=== PATIENT | male | born 1945 | race African-American/Black ===

== ENCOUNTER → 2016-09-14 | Outpatient (CLI) | payer MEDICARE, OTHER ==
--- NOTE | 2016-09-14 14:30 | RAD ---
Right shoulder, 3 views, 09/14/2016: History: Pain after fall The bony structures are demineralized. A right humeral head prosthesis is in place. No fracture or dislocation is evident. There are mild periarticular calcifications or old bone fragments at the distal shoulder joint level. There is mild arthritic change at the AC joint. IMPRESSION: 1. Demineralization. 2. A right humeral head prosthesis is in place. 3. No acute bony abnormality
== END | disposition home or self-care (01) ==
LOC: DXRADRC 11:14
PROVIDERS: ATTEND Orthopaedic Surgery Sports Medicine
DX: M25.511 Pain in right shoulder (principal); M81.0 Age-related osteoporosis without current pathological fracture; W19.XXXA Unspecified fall, initial encounter
CPT/HCPCS: 73030

== ENCOUNTER 2016-10-15 13:54 | Emergency (ER) | payer MEDICARE, OTHER ==
[2016-10-15] MEDS ORDERED: fentaNYL PF 100 MCG/2 ML VIAL IV PRN (14:45)
--- NOTE | 2016-10-15 16:11 | PHYS DOC ---
General Chief Complaint: Neck Pain Stated Complaint: NECK/LEFT ARM PAIN Time Seen by MD: 14:08 Source: patient, EMS, old records Exam Limitations: no limitations Problems: History of Present Illness Initial Comments Pt is 70/M to ED via EMS for neck pain. Pt states he awoke this morning with neck pain and wouldn't get out of bed due to pain. "I think I slept on my neck wrong, my pillow or something I don't know." No trauma, h/o L rotator cuff surgery few years ago. No arm numbness/ tingling/weakness/radiating symptoms. No prearrival treatment, no prior neck pain complaints. No midline or bony pain, pt points to SCM muscle origin and muscle noted to be hypertonic with TTP. 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) Surgical History: other (AICD, left rotator cuff) Social History Smoker: quit greater than 1 year Alcohol: sober Drugs: none Review of Systems Constitutional: denies chills, denies fever EENTM: see HPI Respiratory: denies cough, denies shortness of breath Cardiovascular: denies chest pain, denies palpitations Gastrointestinal: denies nausea, denies vomiting Genitourinary: denies dysuria, denies frequency Musculoskeletal: see HPI Psychiatric/Neurological: denies headache, denies numbness, denies paresthesia , denies weakness Physical Exam General Appearance: moderate distress Ear, Nose, Throat: hearing grossly normal, normal ENT inspection, normal pharynx Neck: tender lateral (L SCM hypertonicity with TTP and decreased ROM no midline or bony pain/tender) Respiratory: normal breath sounds, no respiratory distress Gastrointestinal: non tender, soft Back: no CVA tenderness, no vertebral tenderness Extremities: non-tender, normal inspection Neurologic/Psychiatric: general technician II-XII nml as tested, no motor/sensory deficits, alert, normal mood/affect, oriented x 3 Skin: normal color, warm/dry Orders, Labs, Meds fentanyl with pain relief, pt able to move better. Uses walker at home, still with discomfort but feels it will be tolerable with PO meds. Departure Time of Disposition: 16:16 Disposition: 01 HOME, SELF-CARE Diagnosis: acute torticollis Condition: IMPROVED Patient Instructions: Torticollis, Acute Additional Instructions: Use a walker and request assistance when standing and walking. Heating pad to area 15 minutes 4-5 times daily followed by gentle stretching. Try to keep activity to "pain-free." Rx: norco 5mg #20, prednisone, tizanidine. Take medications with food, take OTC stool softener while taking pain meds. Follow up with your doctor Karen for recheck. Return to ED with new or changing symptoms. EMPERATRIZ ARRIETA DO October 15, 2016 16:11
[2016-10-15] MEDS ORDERED: PRED20TA PO (16:16)
[2016-10-15] MEDS ORDERED: HYDR-971 PO (16:16)
[2016-10-15] MEDS ORDERED: TIZA4TAB PO (16:16)
[2016-10-15 16:40] VITALS: BP 132/68
== END 2016-10-15 16:40 | disposition home or self-care (01) ==
LOC: ER 13:54
DX: M43.6 Torticollis (principal); I13.0 Hypertensive heart and chronic kidney disease with heart failure and stage 1 through stage 4 chronic kidney disease, or unspecified chronic kidney disease; I50.9 Heart failure, unspecified; I48.0 Paroxysmal atrial fibrillation; I25.10 Atherosclerotic heart disease of native coronary artery without angina pectoris; I42.0 Dilated cardiomyopathy; E78.5 Hyperlipidemia, unspecified; I71.4 Abdominal aortic aneurysm, without rupture; N18.9 Chronic kidney disease, unspecified; Z86.73 Personal history of transient ischemic attack (TIA), and cerebral infarction without residual deficits; Z95.810 Presence of automatic (implantable) cardiac defibrillator; Z87.891 Personal history of nicotine dependence
CPT/HCPCS: 96374; 99284; J3010